=== PATIENT | female | born 1940 | race Caucasian/White ===

== ENCOUNTER 2018-07-27 13:02 | Emergency (ER) | payer MEDICARE, OTHER | END 2018-07-27 15:49 | disposition home or self-care (01) | LOC: FTE 13:02 | DX: M54.5 Low back pain (principal); I10 Essential (primary) hypertension | CPT/HCPCS: 71045; 72131; 99284-25 ==

== ENCOUNTER 2019-02-07 18:39 | Emergency (ER) | payer MEDICARE ==
[2019-02-07] MEDS: KETOROLAC 15 MG INJ IV ×2 (19:23→20:34)
[2019-02-07] MEDS: DIAZEPAM 5 MG/ML SYG IV ×2 (19:23→20:34)
[2019-02-07] MEDS: ACETAMINOPHEN 500 MG TAB PO (20:34)
== END 2019-02-07 23:40 | disposition home or self-care (01) ==
LOC: E/R 18:39
DX: S33.5XXA Sprain of ligaments of lumbar spine, initial encounter (principal); I10 Essential (primary) hypertension; X50.0XXA Overexertion from strenuous movement or load, initial encounter; Y92.9 Unspecified place or not applicable
CPT/HCPCS: 72100; 96374; 96375; 96376; 99284-25